=== PATIENT | female | born 1965 | race Caucasian/White ===

== ENCOUNTER 2016-06-15 10:15 | Inpatient (IN) | payer OTHER ==
[~2016-06-15] VITALS: Ht 165.1 cm; Wt 154.6 kg
[~2016-06-15 10:15] MED LIST: DOXY100T20 PO; FAMO-95 PO; GEMF600T PO; LANT3I SC; LISI-525 PO; METO25TA7 PO; NOVO3I SC
[2016-06-15 21:30] VITALS: BP 110/82; PULSE 89; RESP 20
[2016-06-15] MEDS ORDERED: ASPI-664 PO (23:20)
[2016-06-15 23:24] VITALS: Ht 165.1 cm; Wt 154.6 kg
[2016-06-15] MEDS ORDERED: GLUCOSE GEL 15 GRAM TUBE BUCCAL PRN (23:45)
[2016-06-15] MEDS ORDERED: DEXTROSE 50% 50 ML SYRINGE IV PRN ×2 (23:45)
[2016-06-15] MEDS ORDERED: GLUCOSE GEL 15 GRAM TUBE PO PRN ×2 (23:45)
[2016-06-15] MEDS ORDERED: GLUCAGON 1 MG INJ IM PRN (23:45)
[2016-06-16] MEDS ORDERED: LORATADINE 10 MG TAB PO PRN
[2016-06-16] MEDS ORDERED: morphine 4 MG/ML VIAL IV PRN (00:30)
[2016-06-16] MEDS ORDERED: ACETAMINOPHEN 325 MG TAB PO PRN (00:30)
[2016-06-16] MEDS ORDERED: ONDANSETRON 4 MG INJ IV PRN (00:30)
[2016-06-16] MEDS: INSULIN GLARGINE [LANtus] 3 ML PEN SC SCH ×2 (01:43→22:48)
[2016-06-16] MEDS: CEFTRIAXONE 1 GM/50 ML (PMX) 50 ML IVPB SCH (01:45)
[2016-06-16] MEDS: ACCU-CHEK XX SCH (02:00)
[2016-06-16 05:41] LABS: ADD SCAN DIFF NO
[2016-06-16 05:44] LABS: BASOPHILS % 0.2 % (0.0-2.0); EOSINOPHILS # 0.1 10^3/ul (0.0-0.5); EOSINOPHILS % 1.8 % (0.0-7.0); HEMATOCRIT 35.5 % (37.0-47.0); HEMOGLOBIN 11.4 g/dl (12.0-16.0); LYMPHOCYTES # 1.3 10^3/ul (0.8-2.9); LYMPHOCYTES % 26.4 % (15.0-51.0); MEAN CORPUSCULAR HEMOGLOBIN 27.6 pg (29.0-33.0); MEAN CORPUSCULAR HGB CONC 32.1 g/dl (32.0-37.0); MEAN PLATELET VOLUME 10.3 fl (7.4-10.4); MONOCYTE # 0.3 10^3/ul (0.3-0.9); MONOCYTES % 6.1 % (0.0-11.0); NEUTROPHIL # 3.3 10^3/ul (1.6-7.5); NEUTROPHILS % 65.1 % (39.0-77.0); PLATELET COUNT 199 10^3/UL (140-415); RED BLOOD COUNT 4.13 10^6/ul (4.20-5.40); RED CELL DISTRIBUTION WIDTH 13.5 % (11.5-14.5); WHITE BLOOD COUNT 5.1 10^3/ul (4.8-10.8)
[2016-06-16 06:08] LABS: ALBUMIN 3.9 g/dl (3.3-4.9)
[2016-06-16 06:09] LABS: POTASSIUM 3.5 mmol/L (3.5-5.1)
[2016-06-16 06:11] LABS: BILIRUBIN,INDIRECT 0.5 mg/dl (0-1.1); BILIRUBIN,TOTAL 0.5 mg/dl (0.2-1.3); CREATININE 0.62 mg/dl (0.44-1.00)
[2016-06-16 06:12] LABS: ALBUMIN/GLOBULIN RATIO 1.14; CALCIUM 9.3 mg/dl (8.4-10.2); TOTAL PROTEIN 7.3 g/dl (6.1-8.1)
[2016-06-16 07:29] VITALS: BP 108/59; RESP 20
[2016-06-16] MEDS: metFORMIN 500 MG TAB PO SCH ×2 (08:35→17:21)
[2016-06-16] MEDS: GEMFIBROZIL 600 MG TAB PO SCH ×2 (08:36→22:40)
[2016-06-16] MEDS: ASPIRIN (EC) 81 MG TAB PO SCH (08:37)
[2016-06-16] MEDS: RANITIDINE 150 MG TAB PO SCH ×2 (08:37→22:40)
[2016-06-16] MEDS: GABAPENTIN 300 MG CAP PO SCH ×2 (08:37→22:40)
[2016-06-16] MEDS: METOPROLOL 25 MG TAB PO SCH (08:38)
[2016-06-16] MEDS: HYDROCHLOROTHIAZIDE 25 MG TAB PO SCH (08:38)
[2016-06-16] MEDS: BENAZEPRIL 5 MG TAB PO SCH (08:38)
[2016-06-16] MEDS: AMLODIPINE 10 MG TAB PO SCH (08:39)
[2016-06-16] MEDS: ENOXAPARIN 40 MG/0.4 ML SYG SC SCH (08:46)
[2016-06-16] MEDS: INSULIN ASPART [NOVOLOG] 3 ML PEN SC SCH ×4 (08:47→22:48)
[2016-06-16] MEDS ORDERED: ASPI-664 PO (11:28)
[2016-06-16] MEDS ORDERED: HYD25 PO (11:28)
[2016-06-16] MEDS ORDERED: QUET100T PO (11:28)
[2016-06-16] MEDS ORDERED: LORA-932 PO (11:28)
[2016-06-16] MEDS ORDERED: QUIN5TAB15 PO (11:28)
[2016-06-16] MEDS ORDERED: QUET300T13 PO (11:28)
[2016-06-16] MEDS ORDERED: AMLO-147 PO (11:28)
[2016-06-16] MEDS ORDERED: GABA300C16 PO (11:28)
--- NOTE | 2016-06-16 14:15 | QN ---
Documentation Comment [id number] ISATU OKEEFE MD June 16, 2016 14:15
--- NOTE | 2016-06-16 14:58 | HP ---
DATE OF ADMISSION: 06/15/2016 HISTORY OF PRESENT ILLNESS: Ira Benítez is a 50-year-old female who has a history of diabetes mellitus, history of lower extremity cellulitis. The patient has history of obesity, history of right arm surgery, history of ear surgery, mastoiditis, presented to Hospital for lower extremity cellulitis. The patient's EKG shows sinus rhythm. The patient is being admitted for further management. PAST MEDICAL HISTORY: As mentioned above. Previously, the patient has history of diabetes mellitus, hypertension, dyslipidemia, depression, schizophrenia, obesity. The patient has history of appendectomy, arm surgery, history of cellulitis, history of mastoiditis. ALLERGY HISTORY: PENICILLIN LISTED PER PATIENT. MEDICATIONS: 1. psychic meds 2. Chlorpromazine. 3. Clozaril. 4. Depakote. 5. Haloperidol. 6. Risperdal. 7. Zyprexa. REVIEW OF SYSTEMS: HEENT: Hard of hearing. RESPIRATORY: Unremarkable. CARDIOVASCULAR: Unremarkable. ABDOMEN: Unremarkable. EXTREMITIES: Pain of the lower extremities. CENTRAL NERVOUS SYSTEM: Unremarkable. PHYSICAL EXAMINATION: GENERAL: The patient is an overweight, obese female, awake, alert. VITAL SIGNS: Stable with a pulse 80, blood pressure 108/59. HEAD: Atraumatic, normocephalic. Pupils equal, reactive to light. NECK: Supple. No JVD. LUNGS: Clear. CARDIOVASCULAR: S1, S2 are normal. ABDOMEN: Soft, nontender. Bowel sounds positive. No palpable mass or hepatosplenomegaly. EXTREMITIES: There is no cyanosis, clubbing, edema, but redness of both lower extremities noted, more on the left than right. CENTRAL NERVOUS SYSTEM: The patient is awake, alert, no deficit. LABORATORY DATA: Hematocrit 35.5. Sodium 140, potassium 3.5, glucose 252. IMPRESSION: 1. Cellulitis of the lower extremities. 2. Obesity. 3. Diabetes mellitus. 4. Dyslipidemia. PLAN: To continue sliding scale and home medications after we review them. Antibiotic and wound care. Orders were done. Dictated By: ISATU OKEEFE MD BS/NTS Conf#: [id number] DID#: [id number] MTDD
[2016-06-16 19:19] VITALS: BP 113/72; RESP 18
[2016-06-16] MEDS ORDERED: INSULIN GLARGINE [LANtus] 3 ML PEN SC SCH (20:00)
[2016-06-17] MEDS: ACCU-CHEK XX SCH (02:00)
[2016-06-17] MEDS: CEFTRIAXONE 1 GM/50 ML (PMX) 50 ML IVPB SCH (02:11)
[2016-06-17 07:30] VITALS: BP 107/52; RESP 18
[2016-06-17] MEDS: GEMFIBROZIL 600 MG TAB PO SCH ×2 (08:13→20:42)
[2016-06-17] MEDS: ASPIRIN (EC) 81 MG TAB PO SCH (08:13)
[2016-06-17] MEDS: metFORMIN 500 MG TAB PO SCH ×2 (08:13→17:38)
[2016-06-17] MEDS: RANITIDINE 150 MG TAB PO SCH ×2 (08:14→20:42)
[2016-06-17] MEDS: GABAPENTIN 300 MG CAP PO SCH ×2 (08:14→20:42)
[2016-06-17] MEDS: INSULIN ASPART [NOVOLOG] 3 ML PEN SC SCH ×4 (08:17→20:40)
[2016-06-17] MEDS: ENOXAPARIN 40 MG/0.4 ML SYG SC SCH (08:18)
[2016-06-17] MEDS: HYDROCHLOROTHIAZIDE 25 MG TAB PO SCH (09:00)
[2016-06-17] MEDS: AMLODIPINE 10 MG TAB PO SCH (09:00)
--- NOTE | 2016-06-17 09:40 | PN ---
Date/Time of Note Date/Time of Note DATE: 06/17/16 TIME: 09:38 Assessment/Plan VTE Prophylaxis VTE Prophylaxis Intervention: ambulation Lines/Catheters IV Catheter Type (from [facility]): Saline Lock Assessment/Plan Chief Complaint/Hosp Course 1. Cellulitis of the lower extremities. 2. Obesity. 3. Diabetes mellitus, uncontrolled. 4. Dyslipidemia. Problems: Assessment/Plan 1. Continue A/b Exam/Review of Systems Vital Signs Vitals Vital Signs Date Time Temp Pulse Resp B/P Pulse Ox O2 Delivery O2 Flow Rate FiO2 06/17/16 07:30 98.3 73 18 107/52 99 06/15/16 21:30 Room Air Intake and Output 06/16/16 06/16/16 06/17/16 15:00 23:00 07:00 Intake Total 2000 ml 1630 ml Balance 2000 ml 1630 ml Exam Constitutional: alert, oriented Psych: no complaints Head: normocephalic Eyes: nl conjunctiva ENMT: nl external ears & nose Neck: supple Respiratory: clear to auscultation Cardiovascular: regular rate and rhythm Genitourinary - Female: nl external genitalia Musculoskeletal: nl extremities to inspection, other (wheelchair dependent) Neurological: CARD PAINTER II-XII intact Skin: other (redness left leg) Results Result Diagram: 06/16/16 0515 06/16/16 0515 Results 24 hrs Laboratory Tests Test 06/16/16 11:59 06/16/16 17:08 06/16/16 22:33 06/17/16 02:13 Bedside Glucose 252 H 165 216 222 H Test 06/17/16 07:44 Bedside Glucose 196 Medications Medications Current Medications Amlodipine Besylate (Norvasc) 10 mg DAILY PO ; Start 06/16/16 at 09:00 Aspirin (Halfprin) 81 mg DAILY PO Last administered on 06/17/16 08:13; Admin Dose 81 MG; Start 06/16/16 at 09:00 Gabapentin (Neurontin) 300 mg BID PO Last administered on 06/17/16 08:14; Admin Dose 300 MG; Start 06/16/16 at 09:00 Gemfibrozil (Lopid) 600 mg BID PO Last administered on 06/17/16 08:13; Admin Dose 600 MG; Start 06/16/16 at 09:00 Hydrochlorothiazide (Hydrochlorothiazide) 25 mg DAILY PO ; Start 06/16/16 at 09: 00 Loratadine (Claritin) 10 mg DAILY PRN PO ALLERGIC REACTION; Start 06/16/16 at 00 :00 Metoprolol Tartrate (Lopressor) 25 mg DAILY PO ; Start 06/16/16 at 09:00 Benazepril HCl (Lotensin) 5 mg DAILY PO ; Start 06/16/16 at 09:00 Ranitidine HCl (Zantac) 150 mg BID PO Last administered on 06/17/16 08:14; Admin Dose 150 MG; Start 06/16/16 at 09:00 Diagnostic Test (Pha) (Accu-Chek) 1 ea 02 XX ; Start 06/16/16 at 02:00 Miscellaneous Information 1 ea NOTE XX ; Start 06/15/16 at 23:45 Glucose (Glutose) 15 gm Q15M PRN PO DECREASED GLUCOSE; Start 06/15/16 at 23:45 Glucose (Glutose) 22.5 gm Q15M PRN PO DECREASED GLUCOSE; Start 06/15/16 at 23:45 Dextrose (D50w Syringe) 25 ml Q15M PRN IV DECREASED GLUCOSE; Start 06/15/16 at 23:45 Dextrose (D50w Syringe) 50 ml Q15M PRN IV DECREASED GLUCOSE; Start 06/15/16 at 23:45 Glucagon (Glucagen) 1 mg Q15M PRN IM DECREASED GLUCOSE; Start 06/15/16 at 23:45 Glucose (Glutose) 15 gm Q15M PRN BUCCAL DECREASED GLUCOSE; Start 06/15/16 at 23: 45 Insulin Glargine (Lantus) 15 unit DAILY@20 SC Last administered on 06/16/16 22: 48; Admin Dose 15 UNIT; Start 06/16/16 at 00:30 Ondansetron HCl (Zofran Inj) 4 mg Q4H PRN IV NAUSEA AND/OR VOMITING; Start 06/16 at 00:30 Enoxaparin Sodium 40 mg 40 mg DAILY SC Last administered on 06/17/16 08:18; Admin Dose 40 MG; Start 06/16/16 at 09:00 Ceftriaxone Sodium (Rocephin) 50 ml @ 100 mls/hr Q24H IVPB Last administered on 06/17/16 02:11; Admin Dose 100 MLS/HR; Start 06/16/16 at 01:00 Morphine Sulfate (morphine) 4 mg Q4H PRN IV pain; Start 06/16/16 at 00:30 Acetaminophen (Tylenol Tab) 650 mg Q6H PRN PO PAIN AND OR ELEVATED TEMP Last administered on 06/16/16t 10:59; Admin Dose 650 MG; Start 06/16/16 at 00:30 MATTHIEU ALBERT June 17, 2016 09:40
[2016-06-17] MEDS: BENAZEPRIL 5 MG TAB PO SCH (12:13)
[2016-06-17] MEDS: METOPROLOL 25 MG TAB PO SCH (12:13)
[2016-06-17 13:57] VITALS: BP 125/84; PULSE 78
--- NOTE | 2016-06-17 14:58 | CONS ---
DATE OF ADMISSION: 06/15/2016 DATE OF CONSULTATION: 06/17/2016 REASON FOR CONSULTATION: Hypertension, uncontrolled. Assess management. REQUESTING PHYSICIAN: Antione Okeefe MD. HISTORY OF PRESENT ILLNESS: Ms. Benítez is a 50-year-old female with history of diabetes mellitus, h ypertension, dyslipidemia, psychiatric disorder with depression, schizophrenia, prior ETOH abuse and tobacco intake who presented with complaints of left lower extremity leg pain, swelling. Patient s ubsequently upon arrival noted to have temperature 99.2, blood pressure 110/82, pulse 89, respirator y 20, saturating 96%. The patient's labs revealed a white count 5.1, hemoglobin 11.4, platelet coun t 199. Sodium of 140, potassium 3.5, creatinine 0.6, BUN 13, AST 15, ALT 28. The patient has no im aging studies for my review at this time. The patient's electrocardiogram revealed sinus rhythm of 88, normal axis, normal intervals, inferior biphasic T-wave abnormalities. Patient subsequently adm itted to the floor and since admit to the floor, denies chest pain, shortness of breath. She contin ues to have leg pain. The patient has been diagnosed with cellulitis, for which she is being treate d with antibiotics. PAST MEDICAL HISTORY: As above in HPI. MEDICATIONS CURRENTLY IN HOSPITAL: 1. Norvasc 10 mg daily. 2. Aspirin 81 mg daily. 3. Neurontin ____ mg p.o. b.i.d. 4. Lopid 600 mg b.i.d. 5. Hydrochlorothiazide 25 mg daily. 6. Metoprolol 25 mg daily. 7. Finasteride 5 mg daily. 8. Zantac 150 mg b.i.d. 9. Lovenox ____subcutaneous daily. 10. Insulin sliding scale metformin 1000 mg b.i.d. 11. Ceftriaxone IV daily. 12. Zofran p.r.n. 13. Morphine p.r.n. 14. Tylenol p.r.n. ALLERGIES: 1. INSULIN. 2. PENICILLIN. 3. ____. 4. CLOZAPINE. 5. DEPAKOTE. 6. HALDOL. SOCIAL HISTORY: No current tobacco, ETOH or illicit drug use. Positive history of ETOH and tobacco intake, quit x3 years. No illicit drug use. FAMILY HISTORY: Negative for sudden cardiac or early CAD. REVIEW OF SYSTEMS: As above in HPI. CONSTITUTIONAL: No fevers, chills. PULMONARY: No current shortness of breath. CHEST: No current chest pain. GASTROINTESTINAL: No vomiting. GENITOURINARY: No hematuria. MUSCULOSKELETAL: Degenerative joint disease. PSYCHIATRIC: The patient denies depression. NEUROLOGIC: No documented history of CVA. PHYSICAL EXAMINATION VITAL SIGNS: Temperature of 98.3, blood pressure 110/52, pulse is 70, respirations 18, saturating 9 8%. GENERAL: The patient is alert, awake, in no acute distress. NECK: JVP approximately 8 to 9 cm water. CHEST: Fair movement throughout with mildly decreased breath sounds at bases bilaterally. HEART: Regular rate and rhythm. Normal S1, S2, I/ systolic murmur, nondisplaced PMI. ABDOMEN: Positive bowel sounds, soft. EXTREMITIES: There is 1+ edema, 1+ pulses bilaterally, posterior tibial. Mild erythema of the left lower extremity greater than right. LABORATORY DATA: As above in HPI. No further labs for my review at this time. IMAGING STUDIES: No imaging studies for my review at this time. ECG: As above in HPI. No further electrocardiograms for my review at this time. IMPRESSION: 1. Hypertension. Assess management. Under reasonable control with multiple antihypertensives. We will try to consolidate therapy. 2. Abnormal electrocardiogram, assess for acute coronary syndrome. 3. Dyslipidemia. 4. Lower extremity cellulitis. 5. Psychiatric disorder, depression, schizophrenia. 6. History of prior tobacco intake and illicit drug use. Quit x3 years. 7. Anemia. 8. Diabetes mellitus. 9. Possible neuropathy. RECOMMENDATIONS: 1. At this time, would check serial EKGs, assess for any significant ongoing changes and complete a rule out for myocardial infarction to ensure the patient's EKG abnormalities are chronic in nature and not due to any recent acute coronary syndrome, but continue the patient's aspirin for prophylaxi s against cardiovascular events. 2. At this time, we will continue the patient's current beta enoch and JAREN inhibitor for control of blood pressure and heart rate in the setting of diabetes, but will hold the patient's Norvasc and hydrochlorothiazide and follow blood pressure closely and resume as necessary. 3. Continue the patient's antibiotics and follow up all culture data and continue to follow the pat ient's exam closely. 4. Check a 2D echo to further assess patient's ejection fraction, wall motion and major valve abnor malities. 5. Additionally, check a 2D echocardiogram to further assess the patient's ejection fraction, wall motion, major valve abnormalities, and will check a fasting lipid panel for general risk stratificat ion and adjust patient's lipid lowering medication as necessary. Thank you for allowing me to take part in the care of this patient. I will continue to follow along very closely with you. Further recommendations will be made as the patient progresses through her inpatient clinical course. Dictated By: NORBERT FELTON/PHILOMENA Conf#: [id number] DID#: [id number] CC: ANTIONE OKEEFE MD;*End*
--- NOTE | 2016-06-17 18:01 | RADRPT ---
PROCEDURE: Ultrasound of the bilateral lower extremity venous system. CLINICAL INDICATION: Bilateral leg pain and swelling, deep venous thrombosis TECHNIQUE: Tamayo scale with and without compression, color doppler, spectral doppler of the venous system of the bilateral lower extremities was performed. Venous augmentation maneuvers were utilized . COMPARISON: No prior studies are available for comparison. FINDINGS: RIGHT: Common femoral vein: Patent. Femoral vein: Patent. Popliteal vein: Patent. Calf veins: Patent. No soft tissue abnormalities are identified. LEFT: Common femoral vein: Patent. Femoral vein: Patent. Popliteal vein: Patent. Calf veins: Patent. No soft tissue abnormalities are identified. IMPRESSION: No evidence of a deep vein thrombosis within the bilateral lower extremities. RPTAT: AADD .Juan Carlos Bright MD, MD Date Time Electronically viewed and signed by .Juan Carlos Bright MD, on 06/17/2016 18:01 .B/
[2016-06-17 19:24] VITALS: BP 118/56; RESP 18
[2016-06-17] MEDS: INSULIN GLARGINE [LANtus] 3 ML PEN SC SCH (20:46)
[2016-06-18] MEDS: CEFTRIAXONE 1 GM/50 ML (PMX) 50 ML IVPB SCH (00:27)
[2016-06-18] MEDS: ACCU-CHEK XX SCH (01:18)
[2016-06-18 05:42] LABS: ADD SCAN DIFF NO
[2016-06-18 05:47] LABS: BASOPHILS % 0.2 % (0.0-2.0); EOSINOPHILS # 0.1 10^3/ul (0.0-0.5); HEMATOCRIT 37.2 % (37.0-47.0); HEMOGLOBIN 12.5 g/dl (12.0-16.0); LYMPHOCYTES # 1.6 10^3/ul (0.8-2.9); LYMPHOCYTES % 33.2 % (15.0-51.0); MEAN CORPUSCULAR HEMOGLOBIN 28.7 pg (29.0-33.0); MEAN CORPUSCULAR HGB CONC 33.6 g/dl (32.0-37.0); MEAN CORPUSCULAR VOLUME 85.3 fl (82.0-101.0); MEAN PLATELET VOLUME 10.3 fl (7.4-10.4); MONOCYTE # 0.3 10^3/ul (0.3-0.9); NEUTROPHIL # 2.8 10^3/ul (1.6-7.5); NEUTROPHILS % 58.2 % (39.0-77.0); PLATELET COUNT 251 10^3/UL (140-415); RED BLOOD COUNT 4.36 10^6/ul (4.20-5.40); RED CELL DISTRIBUTION WIDTH 13.4 % (11.5-14.5); WHITE BLOOD COUNT 4.9 10^3/ul (4.8-10.8)
[2016-06-18 06:03] LABS: POTASSIUM 3.8 mmol/L (3.5-5.1)
[2016-06-18 06:06] LABS: CREATININE 0.64 mg/dl (0.44-1.00)
[2016-06-18 06:07] LABS: CALCIUM 9.7 mg/dl (8.4-10.2)
[2016-06-18 06:15] LABS: CHOL/HDL RATIO 6.7 RATIO
[2016-06-18] MEDS: metFORMIN 500 MG TAB PO SCH ×2 (08:15→17:26)
[2016-06-18] MEDS: BENAZEPRIL 5 MG TAB PO SCH (08:15)
[2016-06-18] MEDS: GEMFIBROZIL 600 MG TAB PO SCH (08:15)
[2016-06-18] MEDS: GABAPENTIN 300 MG CAP PO SCH (08:15)
[2016-06-18] MEDS: ASPIRIN (EC) 81 MG TAB PO SCH (08:15)
[2016-06-18] MEDS: RANITIDINE 150 MG TAB PO SCH (08:15)
[2016-06-18] MEDS: METOPROLOL 25 MG TAB PO SCH (08:16)
[2016-06-18] MEDS: ENOXAPARIN 40 MG/0.4 ML SYG SC SCH (08:20)
[2016-06-18] MEDS: INSULIN ASPART [NOVOLOG] 3 ML PEN SC SCH ×3 (08:20→17:31)
[2016-06-18 08:26] VITALS: BP 122/60; RESP 16
--- NOTE | 2016-06-18 11:24 | CONS ---
Date/Time of Note Date/Time of Note DATE: 06/18/16 TIME: 11:22 Assessment/Plan Assessment/Plan Additional Assessment/Plan 1. Hypertension. Assess management. Under reasonable control with multiple antihypertensives. We will try to consolidate therapy- BETTER now, will Rx medically 2. Abnormal electrocardiogram, assess for acute coronary syndrome. 3. Dyslipidemia. 4. Lower extremity cellulitis- on anti-bx, con't to follow 5. Psychiatric disorder, depression, schizophrenia. 6. History of prior tobacco intake and illicit drug use. Quit x3 years. 7. Anemia. 8. Diabetes mellitus- keep euglycemic, weight loss advise 9. Possible neuropathy. Consultation Date/Type/Reason Admit Date/Time June 15, 2016 at 10:15 Initial Consult Date 24 HR Interval Summary Free Text/Dictation NO acute change - BP stable - off tele now ROS: No fever, no chills, no nausea, no vomiting, no diarrhea/constipation No recent weight changes No chest pain, no PND, no orthopnea No dizziness, blurred vision No thirst, no heat or cold intolerance Exam/Review of Systems Vital Signs Vitals Vital Signs Date Time Temp Pulse Resp B/P Pulse Ox O2 Delivery O2 Flow Rate FiO2 06/18/16 08:26 98.2 72 16 122/60 94 06/15/16 21:30 Room Air Intake and Output 06/17/16 06/17/16 06/18/16 15:00 23:00 07:00 Intake Total 1120 ml 250 ml Balance 1120 ml 250 ml Exam General: WN/WD/NAD, AOx 3 HEENT: Unicetric/atraumatic/EOMI ( follow commands) NECK: JVD elevated, no thyromegaly Lymph: no lymphadenopathy HEART: regular with no S3, II/ systolic murmur at apex LUNGS: Coarse sounds ABD: soft, NT, ND, +BS : Intact Neuro: non focal SKIN: chronic changes EXT: trace edema Results Result Diagram: 06/18/16 0459 06/18/16 0459 Results 24 hrs Laboratory Tests Test 06/17/16 12:00 06/17/16 17:33 06/17/16 18:17 06/17/16 20:35 Bedside Glucose 150 163 195 Troponin I < 0.012 Test 06/18/16 01:15 06/18/16 04:59 06/18/16 08:03 Bedside Glucose 157 184 White Blood Count 4.9 Red Blood Count 4.36 Hemoglobin 12.5 Hematocrit 37.2 Mean Corpuscular Volume 85.3 Mean Corpuscular Hemoglobin 28.7 L Mean Corpuscular Hemoglobin Concent 33.6 Red Cell Distribution Width 13.4 Platelet Count 251 # Mean Platelet Volume 10.3 Neutrophils % 58.2 Lymphocytes % 33.2 Monocytes % 7.0 Eosinophils % 1.0 Basophils % 0.2 Nucleated Red Blood Cells % 0.0 Neutrophils # 2.8 Lymphocytes # 1.6 Monocytes # 0.3 Eosinophils # 0.1 Basophils # 0.0 Nucleated Red Blood Cells # 0.0 Sodium Level 140 Potassium Level 3.8 Chloride Level 99 Carbon Dioxide Level 25 Anion Gap 20 H Blood Urea Nitrogen 13 Creatinine 0.64 Glucose Level 187 Calcium Level 9.7 Troponin I < 0.012 Triglycerides Level 199 H Cholesterol Level 197 LDL Cholesterol, Calculated 128 HDL Cholesterol 29 L Cholesterol/HDL Ratio 6.7 Medications Medications Current Medications Amlodipine Besylate (Norvasc) 10 mg DAILY PO ; Start 06/16/16 at 09:00; Status Future Hold Aspirin (Halfprin) 81 mg DAILY PO Last administered on 06/18/16 08:15; Admin Dose 81 MG; Start 06/16/16 at 09:00 Gabapentin (Neurontin) 300 mg BID PO Last administered on 06/18/16 08:15; Admin Dose 300 MG; Start 06/16/16 at 09:00 Gemfibrozil (Lopid) 600 mg BID PO Last administered on 06/18/16 08:15; Admin Dose 600 MG; Start 06/16/16 at 09:00 Hydrochlorothiazide (Hydrochlorothiazide) 25 mg DAILY PO ; Start 06/16/16 at 09: 00; Status Future Hold Loratadine (Claritin) 10 mg DAILY PRN PO ALLERGIC REACTION; Start 06/16/16 at 00 :00 Metoprolol Tartrate (Lopressor) 25 mg DAILY PO Last administered on 06/18/16 08 :16; Admin Dose 25 MG; Start 06/16/16 at 09:00 Benazepril HCl (Lotensin) 5 mg DAILY PO Last administered on 06/18/16 08:15; Admin Dose 5 MG; Start 06/16/16 at 09:00 Ranitidine HCl (Zantac) 150 mg BID PO Last administered on 06/18/16 08:15; Admin Dose 150 MG; Start 06/16/16 at 09:00 Diagnostic Test (Pha) (Accu-Chek) 1 ea 02 XX Last administered on 06/18/16 01: 18; Admin Dose 1 EA; Start 06/16/16 at 02:00 Miscellaneous Information 1 ea NOTE XX ; Start 06/15/16 at 23:45 Glucose (Glutose) 15 gm Q15M PRN PO DECREASED GLUCOSE; Start 06/15/16 at 23:45 Glucose (Glutose) 22.5 gm Q15M PRN PO DECREASED GLUCOSE; Start 06/15/16 at 23:45 Dextrose (D50w Syringe) 25 ml Q15M PRN IV DECREASED GLUCOSE; Start 06/15/16 at 23:45 Dextrose (D50w Syringe) 50 ml Q15M PRN IV DECREASED GLUCOSE; Start 06/15/16 at 23:45 Glucagon (Glucagen) 1 mg Q15M PRN IM DECREASED GLUCOSE; Start 06/15/16 at 23:45 Glucose (Glutose) 15 gm Q15M PRN BUCCAL DECREASED GLUCOSE; Start 06/15/16 at 23: 45 Insulin Glargine (Lantus) 15 unit DAILY@20 SC Last administered on 06/17/16 20: 46; Admin Dose 15 UNIT; Start 06/16/16 at 00:30 Ondansetron HCl (Zofran Inj) 4 mg Q4H PRN IV NAUSEA AND/OR VOMITING; Start 06/16 at 00:30 Enoxaparin Sodium 40 mg 40 mg DAILY SC Last administered on 06/18/16 08:20; Admin Dose 40 MG; Start 06/16/16 at 09:00 Ceftriaxone Sodium (Rocephin) 50 ml @ 100 mls/hr Q24H IVPB Last administered on 06/18/16 00:27; Admin Dose 100 MLS/HR; Start 06/16/16 at 01:00 Morphine Sulfate (morphine) 4 mg Q4H PRN IV pain; Start 06/16/16 at 00:30 Acetaminophen (Tylenol Tab) 650 mg Q6H PRN PO PAIN AND OR ELEVATED TEMP Last administered on 06/16/16 10:59; Admin Dose 650 MG; Start 06/16/16 at 00:30 SHIRLEY DEY MD June 18, 2016 11:24
[2016-06-18] MEDS ORDERED: BISMUTH SUBSALICYLATE 120 ML BTL PO PRN (13:30)
--- NOTE | 2016-06-18 15:46 | PDOCDIS ---
Discharge Instructions CONDITION Patient Condition: Good HOME CARE INSTRUCTIONS: Diet Instructions: Low Fat /CholesterolSpecial Diet: 1800 ADA, 2gm NA ACTIVITY: Activity Restrictions: Slowly Increase Activity Bathing Restrictions: Shower FOLLOW UP/APPOINTMENTS Appointments PCP 1 week SCHOOL/WORK RELEASE June return to School/Work with: No Restrictions MATTHIEU ALBERT June 18, 2016 15:46
--- NOTE | 2016-06-18 15:53 | PN ---
Date/Time of Note Date/Time of Note DATE: 06/18/16 TIME: 15:52 Assessment/Plan VTE Prophylaxis VTE Prophylaxis Intervention: ambulation Lines/Catheters [facility] Saline Lock Assessment/Plan Chief Complaint/Hosp Course 1. Cellulitis of the lower extremities. 2. Obesity. 3. Diabetes mellitus, uncontrolled. 4. Dyslipidemia. Problems: Assessment/Plan 1. Discharge home Subjective 24 Hr Interval Summary Constitutional: chills, no complaints Skin: skin lesions (better) Exam/Review of Systems Vital Signs Vitals Vital Signs Date Time Temp Pulse Resp B/P Pulse Ox O2 Delivery O2 Flow Rate FiO2 06/18/16 08:26 98.2 72 16 122/60 94 06/15/16 21:30 Room Air Intake and Output 06/17/16 06/17/16 06/18/16 15:00 23:00 07:00 Intake Total 1120 ml 250 ml Balance 1120 ml 250 ml Exam Constitutional: alert, oriented Neck: supple Respiratory: clear to auscultation Cardiovascular: regular rate and rhythm Skin: nl turgor, rash or lesions (resolved) Results Result Diagram: 06/18/16 0459 06/18/16 0459 Results 24 hrs Laboratory Tests Test 06/17/16 17:33 06/17/16 18:17 06/17/16 20:35 06/18/16 01:15 Bedside Glucose 163 195 157 Troponin I < 0.012 Test 06/18/16 04:59 06/18/16 08:03 06/18/16 11:56 White Blood Count 4.9 Red Blood Count 4.36 Hemoglobin 12.5 Hematocrit 37.2 Mean Corpuscular Volume 85.3 Mean Corpuscular Hemoglobin 28.7 L Mean Corpuscular Hemoglobin Concent 33.6 Red Cell Distribution Width 13.4 Platelet Count 251 # Mean Platelet Volume 10.3 Neutrophils % 58.2 Lymphocytes % 33.2 Monocytes % 7.0 Eosinophils % 1.0 Basophils % 0.2 Nucleated Red Blood Cells % 0.0 Neutrophils # 2.8 Lymphocytes # 1.6 Monocytes # 0.3 Eosinophils # 0.1 Basophils # 0.0 Nucleated Red Blood Cells # 0.0 Sodium Level 140 Potassium Level 3.8 Chloride Level 99 Carbon Dioxide Level 25 Anion Gap 20 H Blood Urea Nitrogen 13 Creatinine 0.64 Glucose Level 187 Calcium Level 9.7 Troponin I < 0.012 Triglycerides Level 199 H Cholesterol Level 197 LDL Cholesterol, Calculated 128 HDL Cholesterol 29 L Cholesterol/HDL Ratio 6.7 Bedside Glucose 184 183 Medications Medications Current Medications Amlodipine Besylate (Norvasc) 10 mg DAILY PO ; Start 06/16/16 at 09:00; Status Future Hold Aspirin (Halfprin) 81 mg DAILY PO Last administered on 06/18/16 08:15; Admin Dose 81 MG; Start 06/16/16 at 09:00 Gabapentin (Neurontin) 300 mg BID PO Last administered on 06/18/16 08:15; Admin Dose 300 MG; Start 06/16/16 at 09:00 Gemfibrozil (Lopid) 600 mg BID PO Last administered on 06/18/16 08:15; Admin Dose 600 MG; Start 06/16/16 at 09:00 Hydrochlorothiazide (Hydrochlorothiazide) 25 mg DAILY PO ; Start 06/16/16 at 09: 00; Status Future Hold Loratadine (Claritin) 10 mg DAILY PRN PO ALLERGIC REACTION; Start 06/16/16 at 00 :00 Metoprolol Tartrate (Lopressor) 25 mg DAILY PO Last administered on 06/18/16 08 :16; Admin Dose 25 MG; Start 06/16/16 at 09:00 Benazepril HCl (Lotensin) 5 mg DAILY PO Last administered on 06/18/16 08:15; Admin Dose 5 MG; Start 06/16/16 at 09:00 Ranitidine HCl (Zantac) 150 mg BID PO Last administered on 06/18/16 08:15; Admin Dose 150 MG; Start 06/16/16 at 09:00 Diagnostic Test (Pha) (Accu-Chek) 1 ea 02 XX Last administered on 06/18/16 01: 18; Admin Dose 1 EA; Start 06/16/16 at 02:00 Miscellaneous Information 1 ea NOTE XX ; Start 06/15/16 at 23:45 Glucose (Glutose) 15 gm Q15M PRN PO DECREASED GLUCOSE; Start 06/15/16 at 23:45 Glucose (Glutose) 22.5 gm Q15M PRN PO DECREASED GLUCOSE; Start 06/15/16 at 23:45 Dextrose (D50w Syringe) 25 ml Q15M PRN IV DECREASED GLUCOSE; Start 06/15/16 at 23:45 Dextrose (D50w Syringe) 50 ml Q15M PRN IV DECREASED GLUCOSE; Start 06/15/16 at 23:45 Glucagon (Glucagen) 1 mg Q15M PRN IM DECREASED GLUCOSE; Start 06/15/16 at 23:45 Glucose (Glutose) 15 gm Q15M PRN BUCCAL DECREASED GLUCOSE; Start 06/15/16 at 23: 45 Insulin Glargine (Lantus) 15 unit DAILY@20 SC Last administered on 06/17/16 20: 46; Admin Dose 15 UNIT; Start 06/16/16 at 00:30 Ondansetron HCl (Zofran Inj) 4 mg Q4H PRN IV NAUSEA AND/OR VOMITING; Start 06/16 at 00:30 Enoxaparin Sodium 40 mg 40 mg DAILY SC Last administered on 06/18/16 08:20; Admin Dose 40 MG; Start 06/16/16 at 09:00 Ceftriaxone Sodium (Rocephin) 50 ml @ 100 mls/hr Q24H IVPB Last administered on 06/18/16 00:27; Admin Dose 100 MLS/HR; Start 06/16/16 at 01:00 Morphine Sulfate (morphine) 4 mg Q4H PRN IV pain; Start 06/16/16 at 00:30 Acetaminophen (Tylenol Tab) 650 mg Q6H PRN PO PAIN AND OR ELEVATED TEMP Last administered on 06/16/16 10:59; Admin Dose 650 MG; Start 06/16/16 at 00:30 Bismuth Subsalicylate (Pepto-Bismol) 30 ml Q8H PRN PO GASTROINTESTINAL UPSET; Start 06/18/16 at 13:30 MATTHIEU ALBERT June 18, 2016 15:53
--- NOTE | 2016-06-20 21:02 | RADRPT ---
Echocardiogram Report Patient Name: SEAN ABRAHAM Gender: Female Date: 1965 Study Date: 17-Jun-2016 [facility] Therapist: Location: 603 Ref. Physician: NORBERT RODRÍGUEZ Quality: Technically Difficult Study Procedures: Transthoracic echocardiogram with complete 2D, M-Mode, and doppler examination. Indications: Abnormal EKG. 2D/M Mode Doppler Measurement Value Normal Ranges Measurement Value Normal Ranges LVIDd 2D 5.9 3.5 - 5.6 cm LVOT Peak [place] 1.1 m/sec LVIDs 2D 4.0 2.1 - 4.1 cm LVOT Peak PG 5.0 mmHg FS 2D 32.3 % TR Peak [place] 1.3 m/sec LVPWd 2D 1.0 0.6 - 1.1 cm TR Peak PG 6.0 mmHg IVSd 2D 0.9 0.6 - 1.1 cm RVSP 14.0 mmHg IVS/LVPW 2D 0.9 AoR Diam 2D 3.2 2.0 - 3.7 cm LA/Ao 2D 1 0 - 1 EDV 2D 211.0 cm3 ESV 2D 65.5 cm3 LA Dimen 2D 3.9 2.3 - 4.0 cm Findings Left Ventricle: Normal left ventricular systolic function. Normal left ventricular cavity size. Normal left ventricular wall thickness. Mild left ventricular systolic dysfunction. Ejection fraction is visually estimated at 55 %. Tissue Doppler/Mitral Doppler indices are consistent with impaired relaxation (Stage I diastolic dysfunction). Right Ventricle: Normal right ventricular size. Normal right ventricular systolic function. Left Atrium: Upper limit of normal left atrial size. Right Atrium: The right atrium is normal in size. Mitral Valve: Mitral valve leaflets appear mildly thickened. Mild mitral annular calcification. Trace mitral regurgitation. Aortic Valve: Normal appearance of the aortic valve. No significant aortic stenosis or insufficiency. Tricuspid Valve: Tricuspid valve not well visualized. Estimated peak PA systolic pressure 14 mmHg. There is trace tricuspid regurgitation. Pulmonic Valve: Pulmonic valve not well visualized. There is trace pulmonic regurgitation. Pericardium: Normal pericardium with no significant pericardial effusion. Aorta: Normal aortic root. IVC: Dilated IVC with respiratory collapse consistent with elevated right atrial pressure. Conclusions 1.Normal left ventricular systolic function. Normal left ventricular cavity size. Normal left ventricular wall thickness. Mild left ventricular systolic dysfunction. Ejection fraction is visually estimated at 55 %. Tissue Doppler/Mitral Doppler indices are consistent with impaired relaxation (Stage I diastolic dysfunction). 2.Trace mitral regurgitation. 3.Tricuspid valve not well visualized. Estimated peak PA systolic pressure 14 mmHg. There is trace tricuspid regurgitation. 4.Pulmonic valve not well visualized. There is trace pulmonic regurgitation. Electronically Signed By: Norbert Rodríguez 20-Jun-2016 21:02:12 -0700 Patient Name: SEAN ABRAHAM Study Date: 17-Jun-2016 [id number]
--- NOTE | 2016-06-22 19:30 | DS ---
Date/Time of Note Date/Time of Note DATE: 06/22/16 TIME: 19:23 Discharge Summary Admission/Discharge Info Admit Date/Time June 15, 2016 at 10:15 Discharge Date/Time June 18, 2016 at 18:10 Final Diagnosis 1. left leg cellulitis 2. Psychiatric disorder 3. Diabetes mellitus type II, uncontrolled 4. Hypertension, controlled 5. Morbid obesity Patient Condition: Good Consults Cardiology Procedures 2 D echocardiogram Hx of Present Illness Pt was admitted and underwent IV antibiotics, got better control BS with diabetes mellitus type II, controll hypertension. Hospital Course 1. Cellulitis of the lower extremities. 2. Obesity. 3. Diabetes mellitus, uncontrolled. 4. Dyslipidemia. Home Meds Active Scripts Metoprolol Succinate* (Toprol XL*) 25 Mg Tabsr, 25 MG PO DAILY for 28 Days, BOTTLE Prov:ISATU OKEEFE MD 11/23/14 Lisinopril* (Zestril*) 20 Mg Tab, 20 MG PO DAILY for 14 Days, BOT Prov:ISATU OKEEFE MD 11/23/14 Gemfibrozil* (Lopid*) 600 Mg Tab, 600 MG PO BID for 14 Days, BOT Prov:ISATU OKEEFE MD 11/23/14 Famotidine* (Pepcid* AC) 20 Mg Tab, 20 MG PO BID for 14 Days, BOT Prov:ISATU OKEEFE MD 11/23/14 Reported Medications Aspirin* (Aspirin* (EC)) 81 Mg Tablet.dr, 81 MG PO DAILY, TAB 06/16/16 Quetiapine Fumarate* (Seroquel*) 300 Mg Tablet, 300 MG PO HS, TAB 06/16/16 Quetiapine Fumarate* (Seroquel*) 100 Mg Tablet, 100 MG PO QAM, #30 TAB 06/16/16 Quinapril Hcl (Quinapril Hcl) 5 Mg Tablet, 0.5 TAB PO DAILY, #60 TAB 06/16/16 Loratadine (Allergy) 10 Mg Tablet, 10 MG PO DAILY, TAB 06/16/16 Hydrochlorothiazide* (Hydrochlorothiazide*) 25 Mg Tab, 25 MG PO DAILY, #30 TAB 06/16/16 Gabapentin* (Gabapentin*) 300 Mg Capsule, 300 MG PO BID, #60 CAP 06/16/16 Amlodipine Besylate* (Amlodipine Besylate*) 10 Mg Tablet, 10 MG PO DAILY, #30 TAB 06/16/16 Aspirin* (Aspirin* EC) 81 Mg Tablet.dr, 81 MG PO DAILY, TAB 06/15/16 Discontinued Scripts Insulin Glargine* (Lantus*) 100 Unit/Ml Soln, 35 UNIT SC HS for 28 Days, BOT Prov:ISATU OKEEFE MD 11/23/14 Insulin Aspart* (Novolog Insulin Pen*) 100 Unit/Ml Soln, 10 UNIT SC WITH MEALS for 14 Days, BOT Prov:ISATU OKEEFE MD 11/23/14 Doxycycline Hyclate* (Doxycycline Hyclate*) 100 Mg Tablet.dr, 100 MG PO BID for 7 Days, TAB Prov:ISATU OKEEFE MD 11/23/14 Follow-up Plan PCP 1 week MATTHIEU ALBERT June 22, 2016 19:30
--- NOTE | 2016-06-23 08:39 | RADRPT ---
Vent Rate: 87 bpm RR Interval: 0 msec NM Interval: 170 msec QRS Duration: 86 msec QT Interval: 376 msec QTC Interval: 452 msec P-R-T [place]: 62 - 68 - 27 degrees Normal sinus rhythm Normal ECG Electronically Signed By: Raymond Branham [id number]
== END 2016-06-18 18:10 | disposition home or self-care (01) | DRG 603 ==
LOC: MS2 10:15
PROVIDERS: ADMIT Internal Medicine Nephrology; ATTEND Internal Medicine Nephrology
DX: L03.116 Cellulitis of left lower limb (principal); Z68.43 Body mass index [BMI] 50.0-59.9, adult; I10 Essential (primary) hypertension; E11.9 Type 2 diabetes mellitus without complications; F32.9 Major depressive disorder, single episode, unspecified; D64.9 Anemia, unspecified; E78.5 Hyperlipidemia, unspecified; F99 Mental disorder, not otherwise specified; F20.9 Schizophrenia, unspecified; E66.01 Morbid (severe) obesity due to excess calories; Z79.82 Long term (current) use of aspirin; Z79.4 Long term (current) use of insulin
CPT/HCPCS: 80048; 80053; 80061; 82962; 84484; 85025; 93005; 93306; 93970; J0696; J1650; J1815